=== PATIENT | female | born 1975 | race African-American/Black ===

== ENCOUNTER 2018-12-16 19:16 | Emergency (ER) | payer SELFPAY | END 2018-12-16 19:50 | disposition home or self-care (01) | LOC: MADERS 19:16 | DX: S90.464A Insect bite (nonvenomous), right lesser toe(s), initial encounter (principal); I10 Essential (primary) hypertension; E66.9 Obesity, unspecified; W57.XXXA Bitten or stung by nonvenomous insect and other nonvenomous arthropods, initial encounter | CPT/HCPCS: 99283 ==

== ENCOUNTER 2021-10-08 10:55 | Emergency (ER) | payer OTHER, SELFPAY ==
[2021-10-08] MEDS ORDERED: Bacitracin 1 PK ONE (11:21)
[2021-10-08] MEDS ORDERED: Boostrix 0.5 ML (Tdap) VIAL ONE (11:35)
== END 2021-10-08 11:55 | disposition home or self-care (01) ==
LOC: MADERS 10:55
DX: T24.211A Burn of second degree of right thigh, initial encounter (principal); T21.22XA Burn of second degree of abdominal wall, initial encounter; T31.30 Burns involving 30-39% of body surface with 0% to 9% third degree burns; K21.9 Gastro-esophageal reflux disease without esophagitis; I10 Essential (primary) hypertension; D50.9 Iron deficiency anemia, unspecified; E66.9 Obesity, unspecified; X10.0XXA Contact with hot drinks, initial encounter; Y92.69 Other specified industrial and construction area as the place of occurrence of the external cause; Z23 Encounter for immunization; Z68.45 Body mass index [BMI] 70 or greater, adult; Z79.899 Other long term (current) drug therapy
CPT/HCPCS: 90471; 90715

== ENCOUNTER 2022-07-12 09:30 | Emergency (ER) | payer MEDICAID, SELFPAY ==
[~2022-07-12 09:30] MED LIST: Iopamidol 370 76% 100 ML VIAL ONE
[2022-07-12] MEDS ORDERED: Morphine 4 MG/ML VIAL ONE ×2 (09:49→11:19)
[2022-07-12] MEDS ORDERED: Ondansetron PF 4 MG/2 ML Vial ONE (09:49)
[2022-07-12 10:17] LABS: #Basophils 0.1 thou/uL (0.0-0.2); #Lymphocytes 1.2 thou/uL (1.20-3.40); #Monocytes 0.5 thou/uL (0.11-0.59); #Neutrophils 11.4 thou/uL (1.40-6.50); %Basophils 0.9 % (0.0-1.0); %Lymphocytes 8.8 % (21.0-51.0); %Monocytes 3.7 % (0.0-10.0); %Neutrophils 86.7 % (42.0-75.0); Hemoglobin 11.9 g/dL (12.0-16.0); Mean Corpuscular HGB CONC 32.9 g/dL (32.0-36.0); Mean Corpuscular Hemoglobin 25.4 pg (27.0-31.0); Mean Corpuscular Volume 77.1 fl (78.0-98.0); Platelet Count 411 10x3/uL (130-400); RBC Distribution Width 12.8 % (11.5-14.5); White Blood Cell (WBC) Count 13.2 10x3/uL (4.8-10.8)
[2022-07-12 10:33] LABS: ALT (SGPT) 9 U/L (8-55); AST (SGOT) 15 U/L (5-34); Albumin 3.9 g/dL (3.5-5.0); Alkaline Phosphatase 73 U/L (40-110); Anion Gap 14 mmol/L (10-20); BUN (Urea Nitrogen) 11 mg/dL (7.0-18.7); Bilirubin, Total 0.3 mg/dL (0.2-1.2); Calc. Creatinine Clearance 0 mL/min (70-130); Calcium 9.2 mg/dL (7.8-10.44); Carbon Dioxide 24 mmol/L (22-29); Chloride 103 mmol/L (98-107); Estimated GFR 87; Globulin 4.2 g/dL (2.4-3.5); Glucose 130 mg/dL (70-105); Potassium 3.5 mmol/L (3.5-5.1); Protein, Total 8.1 g/dL (6.0-8.3); Sodium 137 mmol/L (136-145)
[2022-07-12 11:36] LABS: Bilirubin Negative (Negative); Blood, Urine Small (Negative); Clarity Clear (Clear); Glucose, Urine (Dipstick) Negative (Negative); Ketone, Urine Negative (Negative); Leukocyte Negative (Negative); Nitrite Negative (Negative); Protein, Urine (Dipstick) Trace mg/dL (Neg-Trace)
[2022-07-12 11:43] LABS: Bacteria/HPF Rare-Few HPF (None Seen); RBC/HPF 0-3 HPF (0-3); WBC/HPF 0-3 HPF (0-3)
[2022-07-12 12:56] LABS: SARS-CoV-2 NAA Rapid Test Not Detected (NotDetected)
== END 2022-07-12 13:30 | disposition short-term general hospital (02) ==
LOC: MADERS 09:30
DX: K42.9 Umbilical hernia without obstruction or gangrene (principal); D72.829 Elevated white blood cell count, unspecified; K21.9 Gastro-esophageal reflux disease without esophagitis; I10 Essential (primary) hypertension; Z20.822 Contact with and (suspected) exposure to COVID-19
CPT/HCPCS: 74177; 80053; 81003; 81015; 85025; 96374; 96375; 96376; J2270; J2405; Q9967; U0002

== ENCOUNTER 2023-07-27 07:15 | Emergency (ER) | payer OTHER | END 2023-07-27 08:20 | disposition home or self-care (01) | LOC: MADERS 07:15 | DX: S63.612A Unspecified sprain of right middle finger, initial encounter (principal); I10 Essential (primary) hypertension; Z79.899 Other long term (current) drug therapy; X50.0XXA Overexertion from strenuous movement or load, initial encounter ==

== ENCOUNTER 2024-02-22 20:05 | Emergency (ER) | payer OTHER ==
[2024-02-22] MEDS ORDERED: Ibuprofen 800 MG TAB ONE (21:01)
== END 2024-02-22 21:10 | disposition home or self-care (01) ==
LOC: MADERS 20:05
DX: M17.11 Unilateral primary osteoarthritis, right knee (principal); I10 Essential (primary) hypertension; K21.9 Gastro-esophageal reflux disease without esophagitis
CPT/HCPCS: 99283